=== PATIENT | male | born 1980 | race Caucasian/White ===

== ENCOUNTER 2018-06-24 11:01 | Emergency (ER) | payer MEDICARE, OTHER ==
[~2018-06-24] VITALS: Ht 190.5 cm; Wt 147.4 kg
[~2018-06-24 11:01] MED LIST: ABILIFY15 MG PO; ALBUTEROL1.25 MG/3 INH; ASPIRIN81 MG PO; LISINOPRIL20 MG PO; MELOXICAM15 MG PO; METHOCARBAMOL750 MG PO; METOPROLOL TART25 MG PO; PANTOPRAZOLE SO40 MG PO; PROAIR HFA INH8.5 GM; ULTRAM50 MG PO
--- OUTSIDE RECORDS SUMMARY | 2018-06-24 11:03 | XMS REPORT ---
Author Author [facility] Address Unknown Phone Unavailable Care Team Providers Care [facility] [employer] Concierge Name Role Phone Unavailable Unavailable Payers Payer Name Policy Type Policy Number Effective Date Expiration Date Problems This patient has no known problems. Allergies, Adverse Reactions, Alerts Allergy Name Allergy Type Status Severity Reaction(s) Onset Date Inactive Date Treating Clinician Comments Iodinated Contrast Media - IV Dye DA Active SV 2016-06-30 00:00:00 Penicillins DA Active SV 2016-06-30 00:00:00 Sulfa (Sulfonamide Antibiotics) DA Active MO 2016-06-30 00:00:00 lidocaine DA Active MO 2016-06-30 00:00:00 codeine DA Active MO 2016-06-30 00:00:00 tetracycline DA Active SV 2016-06-30 00:00:00 erythromycin base DA Active MO 2016-06-30 00:00:00 ceftriaxone DA Active SV 2016-06-30 00:00:00 Cephalexin Monohydrate DA Active U 2016-03-04 00:00:00 Macrolide Antibiotics DA Active MO 2016-03-04 00:00:00 procaine DA Active CA 2016-03-04 00:00:00 Medications This patient has no known medications.
[2018-06-24] MEDS ORDERED: TETANUS/DIPHTHERIA TOX ADULT 0.5 ML SYR IM ONE (11:15)
[2018-06-24] MEDS ORDERED: LIDOCAINE HCL 1% LOCAL INJ 20 ML VIAL INJ ONE (11:15)
[2018-06-24] MEDS ORDERED: TRAMADOL HCL 50 MG TAB PO NR (11:20)
--- NOTE | 2018-06-24 12:05 | Diagnostic Imaging Report ---
Exam: Left hand radiographs-3 views History: Trauma post cutting hand with knife. Query foreign body. Comparison: None. Findings: No evidence of acute fracture or malalignment. There is soft tissue edema of the proximal second finger and thenar eminence. There is a small laceration involving the interspace between the first and second digits. Punctate hyperdensities overlying the thenar eminence and proximal second digit on oblique radiograph are likely due to detector artifact given absence on additional views. No definite radiopaque foreign body. Impression: No acute osseous abnormality. Soft tissue edema involving the thenar eminence and proximal second finger. Small involving the interspace between the base of the first and second digits. Punctate hyperdensities overlying the thenar eminence and proximal second digit on oblique radiograph are likely due to detector artifact given absence on additional views. Signed by: Dr. Campos Emery MD on 06/24/2018 12:02 PM
== END 2018-06-24 12:12 | disposition home or self-care (01) ==
LOC: ER 11:01
DX: S61.412A Laceration without foreign body of left hand, initial encounter (principal); W26.0XXA Contact with knife, initial encounter; Y92.008 Other place in unspecified non-institutional (private) residence as the place of occurrence of the external cause; Z98.84 Bariatric surgery status
CPT/HCPCS: 90471; 90714; 99284